=== PATIENT | male | born 1950 | race African-American/Black ===

== ENCOUNTER 2020-03-18 09:04 | Inpatient (IN) | payer OTHER, MEDICAID ==
[~2020-03-18] VITALS: Ht 190.5 cm; Wt 75.1 kg
[2020-03-18 10:55] LABS: Basophils # (auto) 0 10 ^3/uL (0-0.2); Basophils % (auto) 0.1 % (0.0-2.0); Eosinophils # (auto) 0 10 ^3/uL (0-0.8); Eosinophils % (auto) 0.4 % (0.0-7.0); Hematocrit 43.9 % (41.0-53.0); Hemoglobin 14.3 g/dL (13.5-17.5); Lymphocytes # (auto) 1.7 10 ^3/uL (0.4-5.4); Lymphocytes % (auto) 21.7 % (10.0-50.0); Mean Corpuscular Hemoglobin 28.8 pg (28.0-32.0); Mean Corpuscular Hgb Conc. 32.7 g/dL (32.0-36.0); Mean Corpuscular Volume 88.3 fL (80.0-100.0); Monocytes # (auto) 0.7 10 ^3/uL (0-1.3); Monocytes % (auto) 9.8 % (0.0-12.0); Neutrophils # (auto) 5.2 10 ^3/uL (1.6-8.6); Nucleated Red Blood Cells % 0.1 %; Platelet Count (auto) 166 10^3/uL (140-450); Red Blood Cells 4.97 10^6/uL (4.5-5.90); Red Cell Distribution Width 14.5 % (11.8-14.3); White Blood Cell 7.6 10^3/uL (4.4-10.8)
[2020-03-18 11:10] LABS: INR 1.01 (0.9-1.15); Partial Thromboplastin Time 29.6 sec (23.64-32.05)
[2020-03-18 11:15] LABS: Albumin 3.7 g/dL (3.4-5.0); Anion Gap 3 (5-15); Blood Urea Nitrogen 25 mg/dL (7-18); Calcium 8.8 mg/dL (8.5-10.1); Carbon Dioxide 30 mmol/L (21-32); Chloride 106 mmol/L (98-107); Glucose 106 mg/dL (74-106); Magnesium 2.5 mg/dL (1.6-2.6); Potassium 4.3 mmol/L (3.5-5.1); Sodium 139 mmol/L (136-145)
[2020-03-18 11:18] LABS: Alanine Aminotransferase 16 U/L (16-61); Alkaline Phosphatase 85 U/L (45-117); Aspartate Aminotransferase 16 U/L (15-37); BUN/Creatinine Ratio 17.9; Bilirubin, Total 0.6 mg/dL (0.2-1.0); GFR African American 65 mL/min; GFR Non-African American 54 mL/min; Total Protein 8.2 g/dL (6.4-8.2)
[2020-03-18] MEDS ORDERED: AZITHROMYCIN 500MG/ 250ML 250 ML IV ONE (13:00)
[2020-03-18] MEDS ORDERED: ACETAMINOPHEN 500 MG TAB PO PRN (13:45)
[2020-03-18] MEDS ORDERED: NITROGLYCERIN 0.4 MG SL TAB SL PRN (13:45)
[2020-03-18] MEDS ORDERED: ZINC SULFATE 220mg CAP or TAB PO ONE (14:00)
[2020-03-18] MEDS ORDERED: ALBUTEROL SULF HFA 90MCG INH 200DOSE IN SCH (14:00)
[2020-03-18] MEDS ORDERED: CHOLECALCIFEROL (VITD3) 1,000UNIT=25mCg TAB PO ONE (14:00)
[2020-03-18] MEDS ORDERED: DOXYCYCLINE 100 MG TAB/CAP PO ONE (14:00)
[2020-03-18] MEDS ORDERED: ENOXAPARIN SOD 40 MG/0.4 ML SYRINGE SC ONE (14:00)
[2020-03-18] MEDS ORDERED: ASCORBIC ACID 1,000 MG TAB PO ONE (14:00)
[2020-03-18] MEDS ORDERED: cefTRIAXone 1GM/50ML D5W 50 ML IV ONE (14:00)
[2020-03-18] MEDS ORDERED: KETOROLAC TROMETH 30 MG/ML 1ML VIAL IV ONE (14:15)
[2020-03-18] MEDS: MORPHINE SULF INJ 2 MG/ML SYRINGE 1ML IV PRN (21:11)
[2020-03-18] MEDS: DOXYCYCLINE 100 MG TAB/CAP PO SCH (22:00)
[2020-03-19] MEDS: MORPHINE SULF INJ 2 MG/ML SYRINGE 1ML IV PRN (06:42)
[2020-03-19 07:25] LABS: Basophils # (auto) 0 10 ^3/uL (0-0.2); Basophils % (auto) 0.3 % (0.0-2.0); Eosinophils # (auto) 0 10 ^3/uL (0-0.8); Hematocrit 40.3 % (41.0-53.0); Lymphocytes # (auto) 1.2 10 ^3/uL (0.4-5.4); Lymphocytes % (auto) 14.1 % (10.0-50.0); Mean Corpuscular Hemoglobin 28.1 pg (28.0-32.0); Mean Corpuscular Hgb Conc. 32.2 g/dL (32.0-36.0); Mean Corpuscular Volume 87.1 fL (80.0-100.0); Monocytes % (auto) 12.2 % (0.0-12.0); Neutrophils % (auto) 73.4 % (37.0-80.0); Nucleated Red Blood Cells % 0.1 %; Platelet Count (auto) 158 10^3/uL (140-450); Red Blood Cells 4.63 10^6/uL (4.5-5.90); Red Cell Distribution Width 14.4 % (11.8-14.3); White Blood Cell 8.2 10^3/uL (4.4-10.8)
[2020-03-19 07:28] LABS: Potassium 3.4 mmol/L (3.5-5.1)
[2020-03-19 07:35] LABS: BUN/Creatinine Ratio 19.3; Bilirubin, Total 0.8 mg/dL (0.2-1.0); Calcium 8.4 mg/dL (8.5-10.1); Total Protein 7.3 g/dL (6.4-8.2)
--- NOTE | 2020-03-19 08:21 | NUR ---
Telemetry admit from ER [facility] admitted to Telemetry unit after SBAR received. Patient oriented to KATHLEEN LEON RN primary RN, unit, room, bed, and unit policies regarding patient care. Patient now on continuous telemetry monitoring, tele box # [id number] and telemetry. Patient placed on bedside oxygen 2L NC. Bed in low and locked position, call light within reach. Will continue to monitor. All questions and concerns addressed, patient verbalized understanding.
[2020-03-19 08:42] VITALS: BP 129/70
[2020-03-19] MEDS: cefTRIAXone 1GM/50ML D5W 50 ML IV SCH (08:57)
[2020-03-19 09:02] VITALS: BP 129/70
[2020-03-19 09:29] LABS: Urine Bacteria FEW /hpf (None Seen); Urine Blood Negative /uL (Negative); Urine Mucus FEW (None Seen); Urine Specific Gravity 1.028 (1.001-1.035); Urine WBC 2 /hpf (0 - 3)
[2020-03-19] MEDS ORDERED: HYDR12.55 (09:30)
[2020-03-19] MEDS ORDERED: BENZ200C64 (09:30)
[2020-03-19] MEDS ORDERED: DOCU1CAP31 (09:30)
[2020-03-19] MEDS ORDERED: SIMV-8 (09:30)
[2020-03-19] MEDS ORDERED: HYDR-4069 (09:30)
[2020-03-19] MEDS ORDERED: FIN5T (09:30)
[2020-03-19] MEDS ORDERED: BACL10TA (09:30)
--- NOTE | 2020-03-19 09:31 | NUR ---
HOME MEDICATIONS PULLED FROM EXTERNAL MED REC PT DID NOT KNOW HIS HOME MEDICATION.
[2020-03-19] MEDS ORDERED: CHOLECALCIFEROL (VITD3) 1,000UNIT=25mCg TAB PO SCH (10:00)
[2020-03-19] MEDS ORDERED: ASCORBIC ACID 1,000 MG TAB PO SCH (10:00)
[2020-03-19] MEDS ORDERED: ENOXAPARIN SOD 40 MG/0.4 ML SYRINGE SC SCH (10:00)
[2020-03-19] MEDS ORDERED: ZINC SULFATE 220mg CAP or TAB PO SCH (10:00)
--- NOTE | 2020-03-19 12:18 | NUR ---
Dr. Michel Frey at bedside Discussing plan of care with patient and this RN. New orders received. Will continue to monitor Q1 hour and PRN.
[2020-03-19] MEDS ORDERED: IOHEXOL 350 MG/ML 100ML IJ ONE (12:24)
[2020-03-19] MEDS: HYDROcodone-ACET 7.5/325MG TAB PO PRN ×2 (12:40→20:50)
[2020-03-19] MEDS: DOXYCYCLINE 100 MG TAB/CAP PO SCH ×2 (12:41→22:22)
[2020-03-19 12:43] VITALS: BP 115/68
--- NOTE | 2020-03-19 13:15 | NUR ---
IV Insertion IV access obtained, via clean sterile technique by inserting 20 gauge catheter to left forearm. IV secured properly. No trauma to site. Patient tolerated well. Will continue to monitor Q1 hour and PRN.
--- NOTE | 2020-03-19 13:27 | NUR ---
patient taken down to radiology
--- NOTE | 2020-03-19 13:50 | NUR ---
patient back to room
--- NOTE | 2020-03-19 14:10 | NUR ---
Call from Dr. Michel Frey New orders received, read back and confirmed. Will implement orders. Will continue to monitor Q hour and PRN.
[2020-03-19] MEDS ORDERED: ENOXAPARIN SOD 40 MG/0.4 ML SYRINGE SC ONE (14:15)
[2020-03-19 16:55] VITALS: BP 127/71
--- NOTE | 2020-03-19 18:30 | NUR ---
Call from ultra sound tech Patient needs to be NPO for AAA ultrasound. Instructed this RN to keep patient NPO after midnight. Will endorse to assistant casino shift manager RN.
--- NOTE | 2020-03-19 19:10 | NUR ---
Closing Note Repot given to motorcycle builder RN. No signs or symptoms of distress noted at this time.
--- NOTE | 2020-03-19 20:00 | NUR ---
Opening Shift Note Assumed care of patient. Awake, alert and oriented x4. No S/S of distress/SOB or pain. Instructed on POC and to call for assist PRN. Bed locked, in lowest position, call light within reach, side rails up x2. Will continue to monitor for changes Q1hr and PRN.
[2020-03-19] MEDS: guaiFENesin-DM 100/10mg/5ml SYR PO PRN (20:50)
--- NOTE | 2020-03-19 21:07 | NUR ---
Daughter called Password verified. Updated on patients POC. Verbalized understanding. Will continue with care
[2020-03-19 22:00] VITALS: BP 118/62
[2020-03-19] MEDS: ENOXAPARIN SOD 80 MG/0.8ML SYRINGE SC SCH (22:22)
[2020-03-20 05:00] VITALS: BP_SYST 120; BP_SYST 127; BP_DIAS 69; BP_DIAS 74
--- NOTE | 2020-03-20 06:55 | NUR ---
Closing shift note Care endorsed to day shift RN. No S/S of distress, SOB or pain noted. Bed locked, in lowest position, call light within reach, side rails up x2
--- NOTE | 2020-03-20 07:30 | NUR ---
Opening Shift Note Assumed care of patient, awake and alert. No S/S of distress/SOB or pain. Bed locked and in lowest position and call light is within reach. Instructed on POC and to call for assist PRN, and patient verbalized understanding. Will continue to monitor for changes Q1hr and PRN.
[2020-03-20] MEDS: cefTRIAXone 1GM/50ML D5W 50 ML IV SCH (08:42)
[2020-03-20] MEDS: HYDROcodone-ACET 7.5/325MG TAB PO PRN ×3 (08:42→21:41)
[2020-03-20 09:00] VITALS: BP 105/64
[2020-03-20] MEDS: DOXYCYCLINE 100 MG TAB/CAP PO SCH ×2 (10:00→21:41)
[2020-03-20] MEDS: ENOXAPARIN SOD 80 MG/0.8ML SYRINGE SC SCH ×2 (10:00→21:41)
[2020-03-20 12:20] VITALS: BP 106/61
[2020-03-20] MEDS ORDERED: NICOTINE 21MG/24 HR TOPICAL PATCH TD ONE (12:30)
[2020-03-20] MEDS: guaiFENesin-DM 100/10mg/5ml SYR PO PRN ×2 (15:44→21:46)
[2020-03-20 17:00] VITALS: BP 112/65
[2020-03-20] MEDS ORDERED: ALBUTEROL SULF 2.5 MG/0.5ML(0.5%) NEB SOLN NEB PRN (17:15)
--- NOTE | 2020-03-20 19:20 | NUR ---
opening shift note Assumed care of patient who is A&O x4. Currently on 2L NC with no distress noted. Reports pain to left flank area. Pain management options discussed. Patient is ambulatory without the use of assistive devices at baseline. Two PIVs are present in the left forearm. Both are intact and patent. Flushed with 10ml NS. POC discussed and patient verbalizes understanding. Bed is in low locked position with side rails up x2. Call light is within reach and patient encouraged to call for assistance when needed. Will continue to monitor for changes PRN.
[2020-03-20 22:00] VITALS: BP 115/66
[2020-03-20 23:44] VITALS: BP 115/66
[2020-03-21 05:00] VITALS: BP 129/73
[2020-03-21] MEDS: HYDROcodone-ACET 7.5/325MG TAB PO PRN ×3 (06:17→20:04)
[2020-03-21] MEDS: guaiFENesin-DM 100/10mg/5ml SYR PO PRN ×3 (06:17→20:04)
--- NOTE | 2020-03-21 06:24 | NUR ---
IV removal Patient reports that 22g IV to left forearm is painful. DC'd with clean sterile technique, catheter fully intact. Pressure dressing applied to site. Patient tolerated well.
--- NOTE | 2020-03-21 07:13 | NUR ---
RT NOTE: PRN BREATHING TX. NOT INDICATED AT THIS TIME. PT. EATING BREAKFAST WITH NO O2 ON. PT. DENIES ANY SOB. MO SIGNS OF RESPIRATORY DISTRESS NOTED. PT. HR 95, RR 16, POX 93% R/A. PT. ADVISED TO NOTIFY RN IF BREATHING TX. IS NEEDED.
--- NOTE | 2020-03-21 08:13 | NUR ---
Received pt sitting on side of the bed, call light within reach, pt denies any pain or discomfort, pt reports coughing out phlegm with blood, will report to doctor and will continue to monitor pt.
[2020-03-21] MEDS: DOXYCYCLINE 100 MG TAB/CAP PO SCH ×2 (08:47→21:49)
[2020-03-21] MEDS: cefTRIAXone 1GM/50ML D5W 50 ML IV SCH (08:47)
[2020-03-21] MEDS: ENOXAPARIN SOD 80 MG/0.8ML SYRINGE SC SCH (08:48)
[2020-03-21] MEDS: NICOTINE 21MG/24 HR TOPICAL PATCH TD SCH (08:50)
[2020-03-21 09:00] VITALS: BP 121/72
--- NOTE | 2020-03-21 09:03 | NUR ---
Dr. Frey at bed side to see pt, doctor informed of pt coughing out phlegm with tinge red. Doctor discussed the plan of care with pt.
--- NOTE | 2020-03-21 12:16 | NUR ---
Nutrition Assessment Notes Please refer to link for full assessment notes. Est Energy needs: 1403-0843 kcals (23-25 kcal/kgBW) Est Protein needs: 90-120 gms/day (1.2-1.6 gm/kgBW) d/t respiratory distress Will continue to monitor and reassess prn. Addendum: 03/21/20 at [address] Amended: Links added.
[2020-03-21 13:00] VITALS: BP 133/74
--- NOTE | 2020-03-21 14:19 | NUR ---
Pt reported pain to lt rib cage 03/20, pt requested pain medication, pt was medicated as order, will continue to monitor pt.
--- NOTE | 2020-03-21 15:38 | NUR ---
Ryan, MEMS DEVICE SCIENTIST / cardio at bed side to see pt, doctor discussed plan of care with pt,
[2020-03-21 16:38] VITALS: BP 123/70
--- NOTE | 2020-03-21 18:57 | NUR ---
Respiratory note: ASSESSMENT FOR PRN MED NEB TX. PT SITTING UP IN BED, NO RESPIRATORY DISTRESS NOTED. PT STATES HIS BREATHING HAS BEEN "NOT GREAT", PT MADE AWARE OF PRN MED NEB TX AND REFUSED AT THIS TIME. PT NOTIFIED TO HAVE RT PAGE IF NEEDED. HR 89, SPO2 94% ON ROOM AIR, RR 19, BS DIMINISHED. WILL CONTINUE TO MONITOR.
--- NOTE | 2020-03-21 19:20 | NUR ---
OPENING SHIFT NOTE Assumed care of patient who is A&O x4. Currently on RA with no s/s of distress. Denies SOB and this time. Reports 6/10 left sided pain with coughing. Pain management options discussed with patient. POC discussed and all questions answered. Bed is in low locked position with side rails up x2. Call light is within reach and patient encouraged to call for assistance when needed. Will continue to monitor for changes PRN.
--- NOTE | 2020-03-21 20:04 | NUR ---
PAIN Patient reports 6/10 pain to left rib area while coughing. Patient medicated for pain and cough according to orders.
--- NOTE | 2020-03-21 21:05 | NUR ---
PAIN REASSESSMENT Patient reports pain is now 3/10 and tolerable. Coughing has subsided as well at this time.
[2020-03-21 22:00] VITALS: BP 109/71
[2020-03-22] MEDS: guaiFENesin-DM 100/10mg/5ml SYR PO PRN ×2 (04:28→10:41)
[2020-03-22] MEDS: HYDROcodone-ACET 7.5/325MG TAB PO PRN ×2 (04:28→10:42)
[2020-03-22 05:00] VITALS: BP 127/78
[2020-03-22 08:45] VITALS: BP 122/67
[2020-03-22 09:05] VITALS: BP 122/88
[2020-03-22] MEDS: DOXYCYCLINE 100 MG TAB/CAP PO SCH (09:16)
[2020-03-22] MEDS: cefTRIAXone 1GM/50ML D5W 50 ML IV SCH (09:17)
[2020-03-22] MEDS: NICOTINE 21MG/24 HR TOPICAL PATCH TD SCH (09:19)
--- NOTE | 2020-03-22 09:30 | NUR ---
Eloise CAZARES AT [facility]. INFORMED OF PATIENT STATUS AND LBM. NO NEW ORDERS RECIEVED.
[2020-03-22] MEDS ORDERED: APIXABAN 5 MG TAB PO SCH (10:00)
--- NOTE | 2020-03-22 11:57 | NUR ---
PER Deshawn SWEENEY TO D/C PATIENT HOME.
--- NOTE | 2020-03-22 12:21 | NUR ---
Discharge instructions given as ordered. Encourage to follow up with PMD as instructed. PATIENT INSTRUCTED TO FOLLOW UP WITH PCP AND CONTINUITY TESTER FOR FOLLOW UP STRESS TEST. All questions and concerns addressed. Patient verbalized understanding. Medication reconciliation form completed and copy given to patient. IV removed with catheter intact, pressure dressing applied. Telemetry unit returned to ICU. Patient taken to vehicle via wheelchair with all personal belongings, accompanied by staff and family member. No distress noted at time of departure.
== END 2020-03-22 12:20 | disposition home or self-care (01) | DRG 193 ==
LOC: ER 09:04 → TELE 09:05 → TELE-CENTR 03-19 08:21
PROVIDERS: ADMIT Nurse Practitioner Acute Care; ATTEND Family Medicine
DX: J18.9 Pneumonia, unspecified organism (principal); I26.99 Other pulmonary embolism without acute cor pulmonale; J44.1 Chronic obstructive pulmonary disease with (acute) exacerbation; J44.0 Chronic obstructive pulmonary disease with (acute) lower respiratory infection; I24.9 Acute ischemic heart disease, unspecified; N18.3 Chronic kidney disease, stage 3 (moderate); E87.6 Hypokalemia; E11.22 Type 2 diabetes mellitus with diabetic chronic kidney disease; E78.5 Hyperlipidemia, unspecified; F17.210 Nicotine dependence, cigarettes, uncomplicated; G89.29 Other chronic pain; I12.9 Hypertensive chronic kidney disease with stage 1 through stage 4 chronic kidney disease, or unspecified chronic kidney disease; Z80.0 Family history of malignant neoplasm of digestive organs; M54.9 Dorsalgia, unspecified; Z20.828 Contact with and (suspected) exposure to other viral communicable diseases
CPT/HCPCS: 36415; 71045; 71101; 71275; 76775; 80053; 81001; 82728; 83615; 83735; 83880; 84443; 84484; 85025; 85379; 85610; 85730; 86141; 87040; 87070; 87804; 87880; 93005; 93306; 93970; 94640; G0378; J0696; J1885